=== PATIENT | female | born 1985 | race Two or more races ===

== ENCOUNTER 2018-09-20 18:03 | Inpatient (IN) | payer OTHER ==
[2018-09-20 18:13] VITALS: BMI 41.0
[2018-09-20] MEDS ORDERED: Diphenoxylate HCl/Atropine Tablet PO PRN ×2 (18:58)
[2018-09-20] MEDS ORDERED: Butorphanol Tartrate 1 MG/ML VIAL SLOW IVP PRN (18:58)
[2018-09-20] MEDS ORDERED: Methylergonovine 0.2 MG/ML VIAL IM PRN ×2 (18:58→20:25)
[2018-09-20] MEDS ORDERED: Carboprost 250 MCG/ML AMP IM PRN (18:58)
[2018-09-20] MEDS ORDERED: Acetaminophen 500 MG TAB PO PRN (18:58)
[2018-09-20] MEDS ORDERED: Lidocaine 1% (PF) 30 ML VIAL SC PRN (18:58)
[2018-09-20] MEDS ORDERED: Ondansetron PF 4 MG/2 ML Vial IVP PRN ×2 (18:58→20:25)
[2018-09-20] MEDS ORDERED: Misoprostol 200 MCG TAB PR PRN (18:58)
[2018-09-20] MEDS ORDERED: HYDROcodone/Acetaminophen 5/325 mg Tablet PO PRN ×2 (18:58)
[2018-09-20] MEDS ORDERED: NS / Oxytocin 40 units/1000ml 1,000 ML IV PRN (18:58)
[2018-09-20] MEDS ORDERED: Promethazine HCl 25 MG/ML VIAL IM PRN (18:58)
[2018-09-20] MEDS ORDERED: Ibuprofen 800 MG TAB PO PRN (18:58)
[2018-09-20] MEDS ORDERED: Lactated Ringer's 1,000 ML IV SCH (19:00)
[2018-09-20] MEDS ORDERED: Penicillin G Potassium 5 MILL.UNITS in Sodium Chloride 0.9% 100 ML IVPB SCH (19:00)
[2018-09-20] MEDS ORDERED: Penicillin G Potassium 5 MILL.UNITS VIAL ONE (19:08)
--- NOTE | 2018-09-20 19:24 | PDOC.LDHP ---
Labor and Delivery H&P Chief complaint: contractions HPI: 33 y/o at 38w1d, patient of Dr. Fletcher, presents with regular ctx. Denies VB, LOF, or decreased FM. ROS neg for HEENT, CV, pulm, GI, , neuro, psych, skin, musculoskeletal, or constitutional symptoms other than mentioned above. OB History Details: 1 prior term 13 years ago. Current complications: none Past Medical History: HSV Current medications: other (acyclovir) Previous surgical history: none Allergies/Adverse Reactions: Allergies Allergy/AdvReac Type Severity Reaction Status Date / Time No Known Allergies Allergy Unverified 09/20/18 18:25 Social history: none - Physical Exam Vital signs reviewed and normal: yes General: NAD, resting Lungs: nonlabored breathing Abdomen: gravid Extremeties: no edema (130s, mod variability, + accels, no decels) FHT: category 1 [place] contractions every: 4-5 mins - Vaginal Exam cm dilated: 5 Effacement: 75% Station: 0 - OB Labs Blood type: AB RH: negative Antibody Screen: negative GBS: positive - Assessment L&D Assessment: term patient in labor - Plan Plan: admit to L&D, labor augmentation if indicated, GBS antibiotic prophylaxis , informed consent obtained -: Dr. Fletcher out- will be managed by OB
[2018-09-20 19:37] LABS: Hemoglobin 14.9 g/dL (12.0-16.0); Mean Corpuscular HGB CONC 35.1 g/dL (32.0-36.0); Mean Corpuscular Hemoglobin 32.4 pg (27.0-31.0); Mean Corpuscular Volume 92.2 fL (78.0-98.0); Mean Platelet Volume 8.7 fL (7.4-10.4); Platelet Count 277 thou/uL (130-400); RBC Distribution Width 13.6 % (11.5-14.5); Red Blood Cell (RBC) Count 4.59 mill/uL (4.20-5.40); White Blood Cell (WBC) Count 15.5 thou/uL (4.8-10.8)
[2018-09-20] MEDS ORDERED: NS / Oxytocin 40 units/1000ml 1,000 ML ONE (20:04)
[2018-09-20] MEDS ORDERED: Lidocaine 1% (PF) 30 ML VIAL ONE (20:05)
[2018-09-20 20:13] LABS: Syphilis Antibody Nonreactive (Nonreactive); Syphilis Antibody Index 0.05 S/CO (<1.00 Non-Reactive)
[2018-09-20 20:24] LABS: HBSAg Index 0.19 S/CO (0-0.99); HIV (1/2) Antibody/Antigen Non-Reactive (NonReactive); Hep B Surf Ag Non-Reactive S/CO (NonReactive)
[2018-09-20] MEDS ORDERED: Measles/Mumps/Rubella 10 MCG/0.5 ML VIAL SC ONE (20:25)
[2018-09-20] MEDS ORDERED: Misoprostol 200 MCG TAB VAG PRN (20:25)
[2018-09-20] MEDS ORDERED: Lanolin Ointment 7 GM TUBE TOP PRN (20:25)
[2018-09-20] MEDS ORDERED: diphenhydrAMINE 25 MG CAP PO PRN (20:25)
[2018-09-20] MEDS ORDERED: Varicella virus, LIVE 0.5 ML VIAL SC ONE (20:25)
[2018-09-20] MEDS ORDERED: Preparation H Ointment 28 GM TUBE PR PRN (20:25)
[2018-09-20] MEDS ORDERED: Adacel (T-DAP) 0.5 ML SYRINGE IM ONE (20:25)
[2018-09-20] MEDS ORDERED: Bisacodyl 10 MG SUPP PR PRN (20:25)
[2018-09-20] MEDS ORDERED: Milk Of Magnesia 30 ML UDCUP PO PRN (20:25)
--- NOTE | 2018-09-20 20:29 | PDOC.OPDEL ---
OB Operative/Delivery Note Delivery Dr/Surgeon: Elisabeth Soto MD Pre-Delivery Diagnosis: active labor Procedure/Post Delivery Dx: spontaneous vaginal delivery Weeks gestation: 38 Anesthesia: none - Findings A Sex: male ("Usman") Weight: 6 lb 2.309 oz - 1 min: 8 - 5 min: 9 - Additional Findings/Plan Placenta delivered: spontaneous Repaired Obstetrical Laceration: none Estimated blood loss: QBL 44ml Compilations/Other Findings: Precipitous delivery of vigorous male infant over intact perineum. Mom and baby doing well. Post delivery plan: routine recovery
[2018-09-20] MEDS ORDERED: NS / Oxytocin 40 units/1000ml 1,000 ML IV SCH (20:30)
[2018-09-20] MEDS ORDERED: Penicillin G 2.5 MILL.units 2.5 MILL.UNITS in Premix Bag 1 BAG IVPB SCH (23:00)
[2018-09-20] MEDS: Docusate Calcium (SURFAK) 240 MG CAP PO SCH (23:13)
[2018-09-20] MEDS: Ibuprofen 800 MG TAB PO SCH (23:14)
[2018-09-21] MEDS: Ibuprofen 800 MG TAB PO SCH ×3 (06:27→22:01)
--- NOTE | 2018-09-21 07:34 | PDOC.PP ---
Post Progress Note Post Day #: 1 Subjective: Doing well, only complaint is of a sore hip. Denies any other issues. PO intake tolerated: yes Ambulation: yes Vital Signs (12 hours) Temp Pulse Resp BP BP BP Pulse Ox 09/21/18 03:53 98.2 F 90 20 106/64 09/21/18 00:45 97.8 F 95 18 130/72 09/20/18 23:45 98.1 F 84 18 122/68 09/20/18 22:47 98.1 F 81 18 134/75 97 Weight Weight 254 lb - Physical Examination General: NAD Respiratory: non-labored breathing Abdominal: lochia (normal), no distention, appropriately TTP Fundus firm & at: U-3 Neurological: no gross focal deficits Psychiatric: A&Ox3, normal affect Result Diagrams: 09/20/18 19:18 Additional Labs: Post Labs Blood Type AB NEGATIVE 09/20/18 19:18 Hep Bs Antigen Non-Reactive S/CO (NonReactive) 09/20/18 19:18 (1) (spontaneous vaginal delivery) Code(s): O80 - ENCOUNTER FOR FULL-TERM UNCOMPLICATED DELIVERY Status: Acute - Assessment/Plan Continue routine PP care. Did not receive adequate treatment for GBS so will have to stay 48 hours.
[2018-09-21] MEDS: Docusate Calcium (SURFAK) 240 MG CAP PO SCH ×2 (09:26→22:02)
[2018-09-21] MEDS: Ferrous Sulfate 325 MG TAB PO SCH ×2 (09:26→17:47)
--- NOTE | 2018-09-22 06:24 | PDOC.PP ---
Post Progress Note Post Day #: Doing well, attempting to breastfeed Subjective: 2 PO intake tolerated: yes Flatus: yes Ambulation: yes Vital Signs (12 hours) Temp Pulse Resp BP Pulse Ox 09/21/18 20:30 98.2 F 87 16 135/66 95 09/21/18 19:54 95 Weight Weight 254 lb Afebrile on temp review, BPs wnl - Physical Examination General: NAD Cardiovascular: no m/r/g Respiratory: clear to auscultation bilaterally Abdominal: + bowel sounds, lochia, no distention, appropriately TTP Extremities: negative homans (B) Neurological: no gross focal deficits Psychiatric: A&Ox3, normal affect Result Diagrams: 09/20/18 19:18 Additional Labs: Post Labs Blood Type AB NEGATIVE 09/20/18 19:18 Hep Bs Antigen Non-Reactive S/CO (NonReactive) 09/20/18 19:18 (1) Routine follow-up Code(s): Z39.2 - ENCOUNTER FOR ROUTINE FOLLOW-UP Status: Acute (2) (spontaneous vaginal delivery) Code(s): O80 - ENCOUNTER FOR FULL-TERM UNCOMPLICATED DELIVERY Status: Acute - Assessment/Plan PPD2 doing well, no acute neds identified Stable for discharge today with no evidence metritis or hypertension. Motrin as outpatient meds prn Keep follow up at 2-4 weeks Discharge summary completed in chart: Admit Date: 09/20/18 Discharge Date: 09/22/18 Principle procedure: at 38 weeks
[2018-09-22] MEDS: Ibuprofen 800 MG TAB PO SCH ×2 (06:38→13:52)
[2018-09-22 08:13] VITALS: BP 101/56; TEMP 98.1
[2018-09-22] MEDS: Ferrous Sulfate 325 MG TAB PO SCH (08:20)
[2018-09-22] MEDS: Docusate Calcium (SURFAK) 240 MG CAP PO SCH (08:23)
== END 2018-09-22 15:55 | disposition home or self-care (01) | DRG 806 ==
LOC: L&D/OP 18:03 → L&D 19:21 → 3SW 22:48
PROVIDERS: ADMIT Family Medicine; ATTEND Family Medicine
PROC: 10E0XZZ Delivery of Products of Conception, External Approach (ICD-10-PCS; principal; 2018-09-20)
PROC: 10907ZC Drainage of Amniotic Fluid, Therapeutic from Products of Conception, Via Natural or Artificial Opening (ICD-10-PCS; 2018-09-20)
DX: O99.824 Streptococcus B carrier state complicating childbirth (principal); O98.52 Other viral diseases complicating childbirth; Z37.0 Single live birth; B00.9 Herpesviral infection, unspecified; Z3A.38 38 weeks gestation of pregnancy
CPT/HCPCS: 36415; 85027; 85461; 86780; 86850; 86870; 86900; 86901; 87340; 87389; 90384; 96372; 99285; J2001; J2540

== ENCOUNTER 2019-10-27 02:28 | Day surgery (SDC) | payer OTHER, SELFPAY ==
[2019-10-27] MEDS ORDERED: Ondansetron PF 4 MG/2 ML Vial ONE ×2 (02:53→04:10)
[2019-10-27] MEDS ORDERED: Morphine 4 MG/ML VIAL ONE ×2 (02:53→04:03)
[2019-10-27 03:02] LABS: #Basophils 0.1 thou/uL (0.0-0.2); #Eosinphils 0.2 thou/uL (0.0-0.7); #Monocytes 1.1 thou/uL (0.11-0.59); #Neutrophils 10.1 thou/uL (1.40-6.50); %Basophils 0.8 % (0.0-1.0); %Eosinophils 1.7 % (0.0-10.0); %Lymphocytes 20.4 % (21.0-51.0); %Monocytes 7.5 % (0.0-10.0); %Neutrophils 69.6 % (42.0-75.0); Mean Corpuscular HGB CONC 34.1 g/dL (32.0-36.0); Mean Corpuscular Hemoglobin 31.3 pg (27.0-31.0); Mean Corpuscular Volume 91.9 fL (78.0-98.0); Mean Platelet Volume 6.8 fL (7.4-10.4); Platelet Count 335 thou/uL (130-400); RBC Distribution Width 12.8 % (11.5-14.5); Red Blood Cell (RBC) Count 4.14 mill/uL (4.20-5.40); White Blood Cell (WBC) Count 14.5 thou/uL (4.8-10.8)
[2019-10-27 03:22] LABS: ALT (SGPT) 14 U/L (8-55); AST (SGOT) 11 U/L (5-34); Albumin 4.1 g/dL (3.5-5.0); Alkaline Phosphatase 65 U/L (40-110); Anion Gap 12 mmol/L (10-20); BUN (Urea Nitrogen) 12 mg/dL (7.0-18.7); Bilirubin, Total 0.4 mg/dL (0.2-1.2); Calc. Creatinine Clearance 0 mL/min (70-130); Calcium 9.3 mg/dL (7.8-10.44); Carbon Dioxide 22 mmol/L (22-29); Chloride 106 mmol/L (98-107); Estimated GFR-MDRD Greater than 90; Globulin 2.7 g/dL (2.4-3.5); Glucose 113 mg/dL (70-105); Potassium 3.6 mmol/L (3.5-5.1); Protein, Total 6.8 g/dL (6.0-8.3); Sodium 136 mmol/L (136-145)
[2019-10-27 04:16] LABS: Bacteria/HPF None Seen HPF (None Seen); Bilirubin Negative (Negative); Blood, Urine Trace (Negative); Clarity Clear (Clear); Glucose, Urine (Dipstick) Normal (Negative); Leukocyte Negative Leu/uL (Negative); Nitrite Negative (Negative); Protein, Urine (Dipstick) 30 mg/dL (Neg-Trace); RBC/HPF 0-3 HPF (0-3); Squamous Epithelial 0-3 HPF (0-3); Urobilinogen Normal mg/dL (Less than 2); WBC/HPF 0-3 HPF (0-3)
[2019-10-27] MEDS ORDERED: Midazolam HCl 2 mg/2 ml Vial ONE (04:31)
[2019-10-27] MEDS ORDERED: Fentanyl 100 MCG/2 ML VIAL ONE ×3 (04:31→07:14)
[2019-10-27] MEDS ORDERED: EPINEPHrine 1 MG/ML AMP ONE (04:38)
[2019-10-27] MEDS ORDERED: Bupivacaine PF 0.5% 30 ML VIAL ONE (04:38)
[2019-10-27] MEDS ORDERED: HYDROcodone/Acetaminophen 5/325 mg Tablet ONE (08:21)
--- NOTE | 2019-10-27 08:23 | OP ---
DATE OF PROCEDURE: 10/27/2019 PREOPERATIVE DIAGNOSES: 1. Pelvic pain. 2. Right adnexal mass with pole and heart beat. POSTOPERATIVE DIAGNOSES: 1. Pelvic pain. 2. Right adnexal mass with pole and heart beat. 3. Ruptured ectopic with right tubal . PROCEDURE PERFORMED: Diagnostic laparoscopy with right salpingectomy and evacuation of hemoperitoneum. ANESTHESIA: General. ESTIMATED BLOOD LOSS: Total about 800 mL with the vast majority of that being preoperative. URINE OUTPUT: Avoid red rubber catheter prior to procedure. COMPLICATIONS: None. COUNTS: Correct. CONDITION: Stable to recovery room. SPECIMENS: Right tube with products of conception. DESCRIPTION OF PROCEDURE: Ms. Mikayla Pryor is a 34-year-old female, who presented to the emergency room with acute onset right-sided pelvic pain that began about 1:30 this morning. The patient reports that during her workup, the patient was noted to have right ectopic with a pole and heart beat and free fluid in the pelvis. The patient was counseled to recommendation of surgical management with salpingostomy versus salpingectomy. Risks, benefits, and alternatives were discussed with her. She expressed understanding and desired to proceed. The patient was taken to the operating room, where she was placed in dorsal lithotomy position in [facility] and placed under general anesthesia. She was prepared and draped in normal sterile fashion. Attention was placed vaginally, where with the aid of an operative speculum, the cervix was identified and grasped with a single-tooth tenaculum. A uterine manipulator was then placed for better manipulation during surgery. The attention was then placed abdominally. A Veress needle was placed into the base of the umbilicus and the abdomen was insufflated with CO2 gas. Entry pressure was about 5 mmHg and confirmation of placement was made by percussion over the liver. Once insufflated to about 15 mmHg, a 5-mm trocar was placed through an incision in the belly button and laparoscope was placed confirming proper placement of the trocar. Upon entry, immediately noted the hemoperitoneum. A 10 to 12 mm incision was made suprapubically and an 11-mm port was placed under direct visualization. A second 5-mm port was placed in the left lateral position under direct visualization. With a 10-mm suction radioactive waste disposal dispatcher, the vast majority of the blood was evacuated. Once the pelvis was visible, the uterus was elevated and the tube was made visible and noted to have a large ectopic ruptured at its lateral aspect near the mesosalpinx with active bleeding. Given the location of the rupture, decision was made to do a salpingectomy. With the LigaSure device, the tube was removed from its most distal portion beyond the site of the ectopic. With this performed, hemostasis was achieved. The tube and products of conception were then removed through the suprapubic port with an Endo Catch bag. Upon completion, the abdomen then was thoroughly inspected and the remaining blood in her belly that was easily accessible was removed. The abdomen was then irrigated with sterile fluid and then evacuated out. At this point in time, hemostasis was again confirmed in the right adnexa. The other tube looked healthy as did the ovaries and the procedure was completed. The fascia was closed laparoscopically with 0 Vicryl and the incisions were closed with 4-0 Monocryl after deflation of the abdomen. Attention was then placed vaginal once again and the uterine manipulator and tenaculum were removed. Inspection of the cervix demonstrated spontaneous hemostasis. Procedure was then completed and the patient was extubated and taken to recovery room in stable condition. Job ID: [id number]
--- NOTE | 2019-10-27 08:33 | ULT ---
PRELIMINARY REPORT/[facility]/EMERGENCY AFTER HOURS PROCEDURE: Receipt of this report by the clinical staff was confirmed with HOLLY Cooney by Karina Hassan Oct 27, 2019 03:45:00 RESIDENT INTERN. Addendum electronically signed by Karina Hassan on October 27, 2019 3:45:38 AM RESIDENT INTERN EXAM: US Obstetrical, Complete <14 weeks CLINICAL HISTORY: Pelvic pain, pelvic pressure, brown vaginal spotting TECHNIQUE: Transabdominal imaging of the maternal pelvis and a <14 week gestation with image documentation. COMPARISON: None provided. FINDINGS: GESTATION: A RIGHT adnexal ectopic is noted with a CRL of 8.2 mm corresponding to 6 weeks 5 days and a heartbeat of 158 bpm UTERUS: Unremarkable. No myometrial mass. Measures 8.4 x 4.2 x 4.8 cm CERVIX: Closed. Unremarkable. OVARIES: Neither ovary could be seen. FREE FLUID: Mild free fluid. IMPRESSION: Live right-sided adnexal ectopic corresponding to 6 weeks 5 days ELECTRONICALLY SIGNED BY: Perfecto Del Valle MD Oct 27, 2019 3:42:00 AM RESIDENT INTERN This report is intended for review by the ordering physician only, in accordance of law. If you recei ve this report in error, please call [facility] at [phone]. FINAL REPORT EMERGENT AFTER HOURS PELVIC ULTRASOUND: IMPRESSION: Agree with the preliminary interpretation. Right adnexal ectopic . Ill-defined abnormal ec hogenicity adjacent to the uterus could reflect blood products related to ruptured ectopic. POS: OFF
[2019-10-27] MEDS ORDERED: Rocuronium Bromide 10 MG/ML (10ML VIAL) ONE (12:45)
[2019-10-27] MEDS ORDERED: Ketorolac Tromethamine 30 MG/ML VIAL ONE (12:45)
[2019-10-27] MEDS ORDERED: Glycopyrrolate 0.2 MG/ML 5 ML SYRINGE ONE (12:45)
[2019-10-27] MEDS ORDERED: Dexamethasone 20 MG/5 ML VIAL ONE (12:45)
[2019-10-27] MEDS ORDERED: PROPOFOL 200 MG/20 ML VIAL ONE (12:45)
[2019-10-27] MEDS ORDERED: Lidocaine 1% PF 5 ML VIAL ONE (12:45)
[2019-10-27] MEDS ORDERED: PHENYLEPHRINE-NS 100 MCG/ML 10 ML SYRINGE ONE (12:45)
== END 2019-10-27 09:30 | disposition home or self-care (01) ==
LOC: ERS 02:28 → SDC/OP 04:09
PROVIDERS: ATTEND Obstetrics & Gynecology
DX: O00.101 Right tubal pregnancy without intrauterine pregnancy (principal)
CPT/HCPCS: 36415; 76856; 80053; 81003; 81015; 84702; 85025; 86850; 86900; 86901; 88305; 90384; 96372; 96374; 96375; 96376; J0171; J1100; J1885; J2001; J2250; J2270; J2405; J2704; J3010; S0020

== ENCOUNTER 2019-10-27 14:19 | Emergency (ER) | payer SELFPAY ==
[2019-10-27] MEDS ORDERED: Ondansetron PF 4 MG/2 ML Vial ONE (14:51)
[2019-10-27] MEDS ORDERED: Morphine 4 MG/ML VIAL ONE (14:51)
[2019-10-27 15:20] LABS: Mean Corpuscular HGB CONC 34.2 g/dL (32.0-36.0); Mean Corpuscular Hemoglobin 31.5 pg (27.0-31.0); Mean Corpuscular Volume 92.2 fL (78.0-98.0); Mean Platelet Volume 7.5 fL (7.4-10.4); Platelet Count 316 thou/uL (130-400); RBC Distribution Width 12.6 % (11.5-14.5); Red Blood Cell (RBC) Count 3.48 mill/uL (4.20-5.40); White Blood Cell (WBC) Count 16.3 thou/uL (4.8-10.8)
[2019-10-27 15:36] LABS: ALT (SGPT) 15 U/L (8-55); AST (SGOT) 17 U/L (5-34); Alkaline Phosphatase 59 U/L (40-110); Anion Gap 10 mmol/L (10-20); BUN (Urea Nitrogen) 9 mg/dL (7.0-18.7); Bilirubin, Total 0.5 mg/dL (0.2-1.2); Calc. Creatinine Clearance 0 mL/min (70-130); Calcium 8.7 mg/dL (7.8-10.44); Carbon Dioxide 23 mmol/L (22-29); Chloride 105 mmol/L (98-107); Estimated GFR-MDRD Greater than 90; Globulin 2.7 g/dL (2.4-3.5); Glucose 104 mg/dL (70-105); Lipase 8 U/L (8-78); Potassium 4.4 mmol/L (3.5-5.1); Protein, Total 6.7 g/dL (6.0-8.3); Sodium 134 mmol/L (136-145)
[2019-10-27 15:41] LABS: Band 15 % (5-11); Lymphocytes 1 % (21-51); MDiff Complete? YES; Monocytes 5 % (0-10); Neutrophil 77 % (42-75); Ovalocytes SLIGHT = 2-5 cells (100X) (0-1/hpf); Platelet Morphology Comment Appears Adequate; Polychromasia SLIGHT = 2-3 cells (100X) (0-2/hpf); Reactive Lymphocytes 2 % (0-10)
[2019-10-27 15:51] LABS: Bilirubin Negative (Negative); Blood, Urine Negative (Negative); Clarity Clear (Clear); Glucose, Urine (Dipstick) Normal (Negative); Leukocyte Negative Leu/uL (Negative); Nitrite Negative (Negative); Protein, Urine (Dipstick) 20 mg/dL (Neg-Trace); Urobilinogen Normal mg/dL (Less than 2)
[2019-10-27 15:53] LABS: Pregnancy Test - Urine (BHCG) POSITIVE (Negative); Pregu Control Background? CLEAR/WHITE (CLR/WHITE); Pregu Control Bar Appear? YES (CONTROL BAR); Specific Gravity 1.035 (1.002-1.036)
== END 2019-10-27 17:50 | disposition home or self-care (01) ==
LOC: ERS 14:19
DX: O99.89 Other specified diseases and conditions complicating pregnancy, childbirth and the puerperium (principal); R10.84 Generalized abdominal pain
CPT/HCPCS: 81025; 83690; 93005; 96374; 96375; J2270; J2405

== ENCOUNTER 2021-04-11 12:20 | Outpatient (CLI) | payer BC | END 2021-04-11 12:21 | disposition home or self-care (01) | LOC: BICRAD 12:20 | PROVIDERS: ATTEND Family Medicine | DX: M25.551 Pain in right hip (principal) ==

== ENCOUNTER 2021-07-25 09:18 | Outpatient (CLI) | payer BC | END 2021-07-25 09:19 | disposition home or self-care (01) | LOC: BICRAD 09:18 | PROVIDERS: ATTEND Nurse Practitioner Family | DX: M47.816 Spondylosis without myelopathy or radiculopathy, lumbar region (principal) | CPT/HCPCS: 72110 ==